=== PATIENT | male | born 1965 | race Asian ===

== ENCOUNTER 2018-08-28 11:45 | Emergency (ER) | payer BC ==
[~2018-08-28] VITALS: Ht 167.6 cm; Wt 83.5 kg
[2018-08-28 12:05] VITALS: Ht 167.6 cm; Wt 83.5 kg
[2018-08-28 12:38] LABS: BASOPHIL % 0.3 % (0-2); PLATELET COUNT 287 x10^3mcL (130-400)
[2018-08-28 12:49] LABS: CALCIUM 9.6 mg/dL (8.5-10.1); CARBON DIOXIDE 26.6 mmol/L (21-32); CHLORIDE SERUM 100 mmol/L (98-107); CREATININE SERUM 1.2 mg/dL (0.7-1.3); GFR1 > 60 mL/min; GLUCOSE SERUM 207 mg/dL (74-106); POTASSIUM SERUM 3.4 mmol/L (3.5-5.1); SODIUM SERUM 139 mmol/L (136-145)
[2018-08-28 12:54] LABS: ALBUMIN 4.4 g/dL (3.4-5.0); ALKALINE PHOSPHATASE 70 U/L (46-116); ALT/SGPT 60 U/L (16-63); AST/SGOT 33 U/L (15-37); BILIRUBIN TOTAL 0.9 mg/dL (0.20-1.00); TOTAL PROTEIN, SERUM 8.1 g/dL (6.4-8.2)
[2018-08-28 15:59] LABS: UA SPECIFIC GRAVITY 1.015 (1.005-1.035); microscopic required? YES; urine erythrocyte TRACE (NEGATIVE)
[2018-08-28 19:05] VITALS: BP 166/107
== END 2018-08-28 19:05 | disposition short-term general hospital (02) ==
LOC: ED 11:45
PROVIDERS: Emergency Medicine
DX: R47.81 Slurred speech (principal); R53.1 Weakness; I10 Essential (primary) hypertension; E11.9 Type 2 diabetes mellitus without complications
CPT/HCPCS: 82962; J3490; Q0092